=== PATIENT | male | born 1985 | race Caucasian/White ===

== ENCOUNTER 2019-02-19 18:23 | Observation (INO) | payer SELFPAY ==
[~2019-02-19] VITALS: Ht 185.4 cm; Wt 95.3 kg
[2019-02-19] MEDS ORDERED: FAMOTIDINE 20 MG/2 ML VIAL IV STA (18:47)
[2019-02-19 18:56] LABS: BASOPHILS # (AUTO) 0.1 (0.0-0.1); BASOPHILS % 0.3 % (0.0-1.0); HEMATOCRIT 53.9 % (38.2-49.6); HEMOGLOBIN 19.5 g/dL (14.0-18.0); LYMPHOCYTES # (AUTO) 3.3 (1.0-3.2); LYMPHOCYTES % 15.6 % (18.0-39.1); MEAN CORPUSCULAR HEMOGLOBIN 33.3 pg (28-32); MEAN CORPUSCULAR HGB CONC 36.2 g/dL (31-35); MONOCYTES # (AUTO) 1.5 (0.2-0.8); MONOCYTES % 7.2 % (4.4-11.3); NEUTROPHILS # (AUTO) 15.9 (2.1-6.9); NEUTROPHILS % 76.4 % (38.7-80.0); PLATELET COUNT 440 x10e3/uL (140-360); RED BLOOD COUNT 5.86 x10e6/uL (4.3-5.7); RED CELL DISTRIBUTION WIDTH 12.1 % (11.7-14.4)
[2019-02-19] MEDS ORDERED: HALOPERIDOL LACTATE 5 MG/ML VIAL IV NR (19:00)
[2019-02-19] MEDS ORDERED: SODIUM CHLORIDE 0.9% 1000ML 1,000 ML IV ONE ×2 (19:00→20:15)
[2019-02-19 19:54] LABS: ALBUMIN/GLOBULIN RATIO 1.6 (0.8-2.0); ANION GAP 22.7 mmol/L (8-16); CALCIUM 10.4 mg/dL (8.4-10.2); CREATININE, SERUM 1.69 mg/dL (0.72-1.25); POTASSIUM 3.7 mmol/L (3.5-5.1)
--- NOTE | 2019-02-19 20:21 | Diagnostic Imaging Report ---
EXAMINATION: CHEST 2 VIEWS INDICATION: ^copugh, rule out pneumonia ^[id number] ^1919 COMPARISON: None FINDINGS: PA and lateral views TUBES and LINES: None. LUNGS: Lungs are well inflated. Lungs are clear. There is no evidence of pneumonia or pulmonary edema. PLEURA: No pleural effusion or pneumothorax. HEART AND MEDIASTINUM: The cardiomediastinal silhouette is unremarkable. BONES AND SOFT TISSUES: No acute osseous lesion. Soft tissues are unremarkable. UPPER ABDOMEN: No free air under the diaphragm. IMPRESSION: No acute thoracic abnormality. Signed by: Dr. Jeannie Corbin M.D. on 02/19/2019 8:18 PM
[2019-02-19] MEDS ORDERED: ONDANSETRON HCL INJ 2MG/ML 2ML 2 MG/ML VIAL IV NR (20:30)
[2019-02-19 20:59] LABS: CREATINE KINASE MB 1.2 ng/mL (0-5.0)
[2019-02-19] MEDS: SODIUM CHLORIDE 0.9% 1000ML 1,000 ML IV SCH (21:30)
[2019-02-19 22:08] LABS: BILIRUBIN,URINE MODERATE (NEGATIVE); CLARITY,URINE SL CLOUDY (CLEAR); COLOR,URINE YELLOW (YELLOW); LEUKOCYTE ESTERASE ,URINE NEGATIVE (NEGATIVE); NITRITE,URINE NEGATIVE (NEGATIVE); PROTEIN,URINE DIPSTICK 1+ (NEGATIVE); URINE UROBILINOGEN 0.2 mg/dL (0.2 - 1)
[2019-02-19 22:15] LABS: KETONES,URINE 2+ (NEGATIVE)
[2019-02-19 22:17] LABS: AMPHETAMINES SCREEN,URINE NEGATIVE (NEGATIVE); BENZODIAZEPINES SCREEN,URINE NEGATIVE (NEGATIVE); PHENCYCLIDINE SCREEN,URINE NEGATIVE (NEGATIVE)
[2019-02-19 22:34] LABS: BACTERIA,URINE FEW /HPF; EPITHELIAL CELLS,URINE MODERATE /LPF; HYALINE CASTS >15 (0-1); RBC,URINE 0-5 /HPF (0-5); WBC,URINE (MAN) 0-5 /HPF (0-5)
[2019-02-19 22:35] LABS: MUCUS,URINE MODERATE (RARE)
[2019-02-19] MEDS ORDERED: ONDANSETRON HCL INJ 2MG/ML 2ML 2 MG/ML VIAL IV PRN (23:00)
--- OUTSIDE RECORDS SUMMARY | 2019-02-19 23:10 | XMS REPORT ---
Author Author [facility] Address Unknown Phone Unavailable Care Team Providers Care Containers Sales Representative Name Role Phone Jim PAULSON Unavailable Unavailable Problems This patient has no known problems. Allergies, Adverse Reactions, Alerts This patient has no known allergies or adverse reactions. Medications This patient has no known medications. 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 LUNGS: Lungs are well inflated. Lungs are clear. There is no evidence of pneumonia or pulmonary edema. PLEURA: No pleural effusion or pneumothorax. HEART AND MEDIASTINUM: The cardiomediastinal silhouette is unremarkable. BONES AND SOFT TISSUES: No acute osseous lesion. Soft tissues are unremarkable. UPPER ABDOMEN: No free air under the diaphragm. IMPRESSION: No acute thoracic abnormality. Signed by: Dr. Marylin Adorno M.D. on 02/19/2019 8:18 PM Dictated By: MARYLIN ADORNO MD 17 Transcribed By: VICTORIA on 02/19/192017 COPY TO: EBONI MALIN NP
[2019-02-20] VITALS (7 sets, daily range): BP systolic 110–150; BP diastolic 55–78
[2019-02-20] MEDS: SODIUM CHLORIDE 0.9% 1000ML 1,000 ML IV SCH ×3 (01:05→13:54)
[2019-02-20 05:50] LABS: BASOPHILS % 0.2 % (0.0-1.0); EOSINOPHILS % 0.2 % (0.0-6.0); HEMATOCRIT 44.3 % (38.2-49.6); HEMOGLOBIN 15.4 g/dL (14.0-18.0); LYMPHOCYTES # (AUTO) 2.4 (1.0-3.2); LYMPHOCYTES % 20.7 % (18.0-39.1); MEAN CORPUSCULAR HEMOGLOBIN 32.9 pg (28-32); MEAN CORPUSCULAR HGB CONC 34.8 g/dL (31-35); MEAN CORPUSCULAR VOLUME 94.7 fL (81-99); MONOCYTES % 8.4 % (4.4-11.3); NEUTROPHILS % 70.2 % (38.7-80.0); PLATELET COUNT 282 x10e3/uL (140-360); RED BLOOD COUNT 4.68 x10e6/uL (4.3-5.7); RED CELL DISTRIBUTION WIDTH 12.5 % (11.7-14.4)
[2019-02-20 06:14] LABS: ALANINE AMINOTRANSFERASE 57 IU/L (0-55); ALBUMIN 3.8 g/dL (3.5-5.0); ALBUMIN/GLOBULIN RATIO 1.7 (0.8-2.0); ALKALINE PHOSPHATASE 65 IU/L (40-150); ANION GAP 11.9 mmol/L (8-16); BLOOD UREA NITROGEN 23 mg/dL (7-26); BUN/CREATININE RATIO 23 (6-25); CALCIUM 8.8 mg/dL (8.4-10.2); CARBON DIOXIDE 21 mmol/L (22-29); CHLORIDE 109 mmol/L (98-107); CREATININE, SERUM 0.98 mg/dL (0.72-1.25); EST GLOMERULAR FILTRATION RATE > 60 ML/MIN (60-); GLUCOSE 87 mg/dL (74-118); POTASSIUM 3.9 mmol/L (3.5-5.1); SODIUM 138 mmol/L (136-145)
[2019-02-20] MEDS ORDERED: FAMOTIDINE 20 MG/2 ML VIAL IV SCH (09:00)
[2019-02-20] MEDS ORDERED: PROVENTIL HFA6.7 GM INH (14:47)
--- NOTE | 2019-02-20 22:26 | History and Physical ---
HISTORY OF PRESENT ILLNESS: The patient is a 33-year-old male, who has a past medical history positive for asthma, came here with vomiting. Apparently, he has been smoking mars for few days. He is feeling better. Symptoms are gone. He is tolerating the diet. REVIEW OF SYSTEMS: CARDIOVASCULAR: No chest pain or palpitation. RESPIRATORY: He does not have any shortness of breath. He said that he was diagnosed with asthma when he was a kid and then occasionally he has wheezing. GASTROINTESTINAL: He had nausea and vomiting. No diarrhea. No blood in the stools. No vomiting blood. GENITOURINARY: No frequency. No dysuria. ALLERGIES: HE IS ALLERGIC TO SULFA DRUGS. PAST MEDICAL HISTORY: Positive for asthma. SOCIAL HISTORY: He smokes. He drinks alcohol and he uses mars. He was positive for marijuana in the drug screening. PHYSICAL EXAMINATION: VITAL SIGNS: Blood pressure 118/72, temperature 98.1, heart rate 69 per minute, respiratory rate 19 per minute, and oxygen saturation 99%. HEART: Showed regular rhythm. Normal S1, S2 sound. LUNGS: Clear bilaterally. ABDOMEN: Soft. EXTREMITIES: Show no evidence of cyanosis or hematoma. LABORATORY DATA: On the BMP; sodium 138, potassium 3.9, chloride 109, CO2 of 21, BUN 23, creatinine 0.98, and glucose 87. On the CBC; white blood count 11,300, hemoglobin 15.4, hematocrit 44.3, and platelet count 282,000. AST 21, ALT 57, total bilirubin 0.7, and alkaline phosphatase 65. IMPRESSION: 1. Vomiting. 2. History of asthma. 3. Marijuana use. 4. Leukocytosis. 5. Elevated LFTs. PLAN OF TREATMENT: The patient is going to go home today. He is tolerating a diet. We can do a CBC as outpatient and repeat LFTs as an outpatient also. He is going to be discharged on ProAir metered-dose inhaler 2 puffs every 4 hours as needed for shortness of breath. The patient is told to abstain from drinking, smoking, the patient is smoking marijuana. MD TRISHA Martinez/JONATHAN /[id number]
--- NOTE | 2019-02-21 02:51 | Discharge Summary ---
HOSPITAL COURSE: A 33-year-old male with past medical history positive for asthma, came here with vomiting. He was found to have marijuana in his drug screening. He is feeling better. He is tolerating the diet. He is going home. PHYSICAL EXAMINATION: VITAL SIGNS: Blood pressure 118/72, temperature 98.1, heart rate 69 per minute, respiratory rate 19 per minute, and oxygen saturation 99%. HEART: Showed regular rhythm. Normal S1, S2 sound. LUNGS: Clear bilaterally. ABDOMEN: Soft. FINAL IMPRESSION: 1. Episode of vomiting, which is resolved. 2. Asthma. 3. Marijuana use. 4. Leukocytosis. 5. High LFTs. PLAN OF TREATMENT: He is going to be discharged on albuterol metered-dose inhaler 2 puffs every 4 hours as needed for shortness of breath. Followup with his primary care physician or myself in a week. The patient is to stay away from smoking, drinking, or using recreational drugs. MD TRISHA Martinez/JONATHAN /[id number]
== END 2019-02-20 15:46 | disposition home or self-care (01) ==
LOC: ER 18:23 → ERHOLD 23:07 → IMCU 02-20
PROVIDERS: ADMIT Internal Medicine; ATTEND Internal Medicine
DX: E86.0 Dehydration (principal); J45.909 Unspecified asthma, uncomplicated; F17.210 Nicotine dependence, cigarettes, uncomplicated; D72.829 Elevated white blood cell count, unspecified; F16.10 Hallucinogen abuse, uncomplicated; R79.89 Other specified abnormal findings of blood chemistry; F10.10 Alcohol abuse, uncomplicated; Z88.2 Allergy status to sulfonamides
CPT/HCPCS: 36415 ×2; 71046; 80053 ×2; 80307; 81001; 82150; 82550; 82553; 83690; 84484; 85025 ×2; 96360; 96361; 99284; G0378 ×2; J2405; J7030 ×2

== ENCOUNTER 2019-09-08 10:18 | Emergency (ER) | payer SELFPAY ==
[~2019-09-08] VITALS: Ht 185.4 cm; Wt 95.3 kg
[~2019-09-08 10:18] MED LIST: PROVENTIL HFA6.7 GM INH
== END 2019-09-08 11:32 | disposition home or self-care (01) ==
LOC: ER 10:18
DX: K62.5 Hemorrhage of anus and rectum (principal); K64.8 Other hemorrhoids
CPT/HCPCS: 99281